=== PATIENT | male | born 1995 | race Caucasian/White ===

== ENCOUNTER 2016-10-13 23:08 | Emergency (ER) | payer SELFPAY ==
[2016-10-14 00:03] VITALS: BP 135/80
== END 2016-10-14 00:03 | disposition home or self-care (01) ==
LOC: ED 23:08
DX: H11.32 Conjunctival hemorrhage, left eye (principal)

== ENCOUNTER 2016-10-17 15:50 | Emergency (ER) | payer SELFPAY ==
[2016-10-17 16:00] VITALS: BP 123/66
== END 2016-10-17 18:20 | disposition home or self-care (01) ==
LOC: ED 15:50
DX: H60.01 Abscess of right external ear (principal); Z88.1 Allergy status to other antibiotic agents
CPT/HCPCS: J2001

== ENCOUNTER 2016-10-22 18:12 | Emergency (ER) | payer SELFPAY ==
[2016-10-22 18:28] VITALS: BP 135/74
== END 2016-10-22 18:55 | disposition home or self-care (01) ==
LOC: ED 18:12
DX: Z48.00 Encounter for change or removal of nonsurgical wound dressing (principal); Z88.1 Allergy status to other antibiotic agents

== ENCOUNTER 2018-05-17 21:08 | Emergency (ER) | payer MEDICAID ==
[~2018-05-17] VITALS: Ht 172.7 cm; Wt 112.0 kg
[2018-05-18 00:48] VITALS: BP 145/68
== END 2018-05-18 00:48 | disposition home or self-care (01) ==
LOC: ED 21:08
DX: S61.252A Open bite of right middle finger without damage to nail, initial encounter (principal); Z88.1 Allergy status to other antibiotic agents; Y04.1XXA Assault by human bite, initial encounter; Y93.89 Activity, other specified; Y92.89 Other specified places as the place of occurrence of the external cause; Y99.8 Other external cause status